=== PATIENT | female | born 1990 | race Caucasian/White ===

== ENCOUNTER 2017-06-24 15:46 | Observation (INO) ==
[2017-06-24 16:21] LABS: Basophils # 0.1 K/mcL (0.0-0.2); Basophils % 0.5 %; Eosinophils # 0.1 K/mcL (0.0-0.6); Eosinophils % 0.5 %; Hematocrit 42.1 % (35.3-44.9); Hemoglobin 14.2 g/dL (11.5-15.4); Immature Granulocytes % 0.5 % (0-4); Lymphocytes % 15.3 %; Mean Corpuscular HGB Conc 33.7 g/dL (31.6-35.5); Mean Corpuscular Volume 88.8 fL (83.0-100.0); Mean Platelet Volume 9.5 fL (9.4-12.4); Monocytes # 0.6 K/mcL (0.0-1.3); Monocytes % 4.9 %; Platelet Count 304 K/mcL (140-400); Red Blood Count 4.74 M/mcL (3.82-4.97); Red Cell Distribution Width 12.3 % (11.5-14.5); Segmented Neutrophils % 78.3 %
[2017-06-24] MEDS ORDERED: Ondansetron 4 MG/2 ML VIAL IVP ONE (16:26)
[2017-06-24] MEDS ORDERED: *HR* HYDROmorphone (PF) 1 MG/ML SYRINGE IVP ONE ×2 (16:27→17:33)
--- NOTE | 2017-06-24 16:29 | Emergency Department Note ---
Disposition Clinical Impression: Acute appendicitis Qualifiers: Acute appendicitis type: unspecified acute appendicitis type Qualified Code(s) : K35.80 - Unspecified acute appendicitis Disposition: Admitted As Inpatient Condition: Fair Referrals: Christina Jackson EMBRYOLOGY PROFESSOR [Primary Care Provider] - Forms: Work/School Release, ED Satisfaction Letter Abdominal Pain HPI - General Chief Complaint: ED Abdominal Pain Stated Complaint: Abdominal pain- RLQ Time Seen by Provider: 06/24/17 16:14 Source: patient, family Mode of arrival: ambulatory Limitations: no limitations Nursing Notes Reviewed: Yes Vital Signs Reviewed: Yes - History of Present Illness HPI Narrative: 27-year-old otherwise healthy female transferred evaluation of right lower quadrant abdominal pain. Symptom onset approximately 24 hours ago. States it is sharp in nature and was nonmigratory. Patient notes the pain is directly in the right lower quadrant without radiation. Patient does have a history of kidney stones however this pain is different. Because of the pain is sharp and worse with movement and walking. Patient reports some nausea with emesis. No diarrhea or constipation. No dysuria or hematuria. Patient states she is currently on her menses which is regular with her last menstrual period approximately 28 days ago. Patient denies any fevers chest pain or shortness of breath. Patient does not take any pain medication prior to arrival. Patient 's been nothing by mouth since approximately noon with a diversion of appetite. Pain Scale: 9 - Related Data Previous Rx's Medication Instructions Recorded OxyCODONE/APAP 5/325 [Percocet 1 each PO Q6HR PRN #12 tablet 09/29/16 5/325 MG] Tamsulosin [Flomax] 0.4 mg PO DAILY #15 capsule 09/29/16 Allergies Allergy/AdvReac Type Severity Reaction Status Date / Time No Known Allergies Allergy Verified 09/29/16 06:06 All systems ED: reviewed and negative except as stated. Constitutional: Reports: as per HPI. Denies: fever Eyes: Reports: as per HPI ENT ED: Reports: as per HPI Cardiovascular: Reports: as per HPI Respiratory: Reports: as per HPI. Denies: cough, dyspnea Gastrointestinal: Reports: as per HPI, abdominal pain, nausea. Denies: vomiting , diarrhea, constipation Genitourinary: Reports: as per HPI Musculoskeletal: Reports: as per HPI Integumentary: Reports: as per HPI Neurological: Reports: as per HPI Psychiatric: Reports: as per HPI Endocrine: Reports: as per HPI Hematological/Lymphatic: Reports: as per HPI Abdominal Pain PMH - Past Medical History Medical history: Reports: no medical history Female Surgical History: Reports: , other Psychiatric history: Reports: depression - Social History Smoking status: Never smoker Alcohol use: Reports: none Drug use: Reports: none Physical Exam - General Limitations: no limitations General appearance: alert, in no apparent distress - Head Head exam: atraumatic, normocephalic, normal inspection - Eye Eye exam: Present: normal appearance, EOMI - ENT ENT exam: normal exam, mucous membranes moist - Neck Neck exam: Present: normal inspection - Chest Chest inspection: Present: normal inspection, symmetric chest wall rise - Respiratory Respiratory exam: Present: normal lung sounds bilaterally. Absent: respiratory distress - Cardiovascular Cardiovascular exam: Present: regular rate - Abdominal Exam Abdominal exam: Present: soft, tenderness (Mild to moderate right lower quadrant tenderness). Absent: distention, guarding, rebound - Extremities Exam Extremities exam: Present: normal inspection. Absent: pedal edema - Back Exam Back exam: Present: normal inspection - Neurological Exam Neurological exam: Present: alert, oriented X3 Course Course Narrative: Patient seen and examined. Patient appears in moderate discomfort. Patient basically lab work, symptomatically with IV fluids and antiemetics. Patient also get CT the abdomen pelvis concerns for appendicitis. Patient's been nothing by mouth since noon. Patient's abdominal exam is nonsurgical. - Reevaluation(s) Reevaluation #1: Patient noted that her pain was starting to return. Patient's updated on plan of care. Time: 17:43 - Consultations Consultation #1: Spoke with Dr. Tijerina who will see the patient. Time: 17:32 Vital Signs Temperature 97.6 F 06/24/17 15:47 Pulse Rate 104 06/24/17 15:47 Respiratory Rate 16 06/24/17 15:47 Blood Pressure 109/84 06/24/17 15:47 O2 Sat by Pulse Oximetry 99 06/24/17 15:47 Temperature 97.6 F 06/24/17 15:47 Pulse Rate 104 06/24/17 15:47 Respiratory Rate 16 06/24/17 15:47 Blood Pressure 109/84 06/24/17 15:47 O2 Sat by Pulse Oximetry 99 06/24/17 15:47 Oxygen Delivery Oxygen Delivery Room Air Abdominal Pain - MDM Narrative Medical decision making narrative: 27-year-old female comes for evaluation of right lower quadrant pain. Patient' s history was consistent with an appendicitis. Patient had mild leukocytosis and the labs. Patient's vitals are stable. Patient's abdomen was non- peritoneal. Patient had IV fluids as well as antiemetics and pain control. Patient's CT of the abdomen pelvis shows acute uncomplicated appendicitis. This was confirmed by the radiologist who called to give the report. - Lab Data Lab results reviewed: Yes I reviewed the patient's lab results. Result diagrams: 06/24/17 16:13 06/24/17 16:13 Lab Results 06/24/17 06/24/17 06/24/17 Range/Units 16:13 16:13 16:27 WBC 12.8 H (4.3-11.1) K/mcL RBC 4.74 (3.82-4.97) M/mcL Hgb 14.2 (11.5-15.4) g/dL Hct 42.1 (35.3-44.9) % MCV 88.8 (83.0-100.0) fL MCH 30.0 (28.0-33.3) pg MCHC 33.7 (31.6-35.5) g/dL RDW 12.3 (11.5-14.5) % Plt Count 304 (140-400) K/mcL MPV 9.5 (9.4-12.4) fL Immature Gran % 0.5 (0-4) % Seg Neutrophils % 78.3 % Lymphocytes % 15.3 % Monocytes % 4.9 % Eosinophils % 0.5 % Basophils % 0.5 % Neutrophils # 10.0 H (1.6-8.9) K/mcL Lymphocytes # 2.0 (0.6-4.6) K/mcL Monocytes # 0.6 (0.0-1.3) K/mcL Eosinophils # 0.1 (0.0-0.6) K/mcL Basophils # 0.1 (0.0-0.2) K/mcL Sodium 138 (136-145) mEq/L Potassium 3.5 (3.5-4.5) mEq/L Chloride 106 (98-109) mEq/L Carbon Dioxide 23 (19-29) mEq/L BUN 7 (7-20) mg/dL Creatinine 0.74 (0.57-1.11) mg/dL Est GFR ( Amer) > 60 (> 60) Est GFR (Non-Af Amer) > 60 (> 60) BUN/Creatinine Ratio 9 (6-26) Glucose 79 (70-99) mg/dL Calculated Osmolality 283 (280-300) Calcium 9.4 (8.6-10.8) mg/dL Total Bilirubin 0.7 (0.2-1.2) mg/dL Direct Bilirubin 0.3 (0.0-0.5) mg/dL Indirect Bilirubin 0.4 (0.0-1.2) mg/dL AST 17 (5-34) Units/L ALT 21 (0-55) Units/L Alkaline Phosphatase 124 (38-126) Units/L Serum Total Protein 7.5 (6.0-8.3) g/dL Albumin 3.8 (3.5-5.0) g/dL Globulin 3.7 H (2.4-3.5) g/dL Albumin/Globulin Ratio 1.0 L (1.1-2.2) Lipase < 10 (8-78) Units/L Urine Color (Yellow) Urine Clarity (Clear) Urine pH (5.0-8.0) pH Units Ur Specific Dixon (1.010-1.025) Urine Protein (Neg-Trace) mg/dL Urine Glucose (UA) (Normal) mg/dL Urine Ketones (Negative) mg/dL Urine Blood (Negative) Urine Nitrite (Negative) Urine Bilirubin (Negative) Urine Urobilinogen (Normal) mg/dL Ur Leukocyte Esterase (Negative) Urine Microscopic RBC (0-3) per hpf Urine Microscopic WBC (0-3) per hpf Ur Squamous Epith Cells (None-Few) per lpf Urine Bacteria (None-Few) per hpf Hyaline Casts (None-Few) per lpf Ur Culture Indicated? (NO) Urine Test Negative (Negative) 06/24/17 Range/Units 16:27 WBC (4.3-11.1) K/mcL RBC (3.82-4.97) M/mcL Hgb (11.5-15.4) g/dL Hct (35.3-44.9) % MCV (83.0-100.0) fL MCH (28.0-33.3) pg MCHC (31.6-35.5) g/dL RDW (11.5-14.5) % Plt Count (140-400) K/mcL MPV (9.4-12.4) fL Immature Gran % (0-4) % Seg Neutrophils % % Lymphocytes % % Monocytes % % Eosinophils % % Basophils % % Neutrophils # (1.6-8.9) K/mcL Lymphocytes # (0.6-4.6) K/mcL Monocytes # (0.0-1.3) K/mcL Eosinophils # (0.0-0.6) K/mcL Basophils # (0.0-0.2) K/mcL Sodium (136-145) mEq/L Potassium (3.5-4.5) mEq/L Chloride (98-109) mEq/L Carbon Dioxide (19-29) mEq/L BUN (7-20) mg/dL Creatinine (0.57-1.11) mg/dL Est GFR ( Amer) (> 60) Est GFR (Non-Af Amer) (> 60) BUN/Creatinine Ratio (6-26) Glucose (70-99) mg/dL Calculated Osmolality (280-300) Calcium (8.6-10.8) mg/dL Total Bilirubin (0.2-1.2) mg/dL Direct Bilirubin (0.0-0.5) mg/dL Indirect Bilirubin (0.0-1.2) mg/dL AST (5-34) Units/L ALT (0-55) Units/L Alkaline Phosphatase (38-126) Units/L Serum Total Protein (6.0-8.3) g/dL Albumin (3.5-5.0) g/dL Globulin (2.4-3.5) g/dL Albumin/Globulin Ratio (1.1-2.2) Lipase (8-78) Units/L Urine Color Yellow (Yellow) Urine Clarity Clear (Clear) Urine pH 6.5 (5.0-8.0) pH Units Ur Specific Dixon 1.009 L (1.010-1.025) Urine Protein Negative (Neg-Trace) mg/dL Urine Glucose (UA) Normal (Normal) mg/dL Urine Ketones Negative (Negative) mg/dL Urine Blood Moderate H (Negative) Urine Nitrite Negative (Negative) Urine Bilirubin Negative (Negative) Urine Urobilinogen Normal (Normal) mg/dL Ur Leukocyte Esterase Trace H (Negative) Urine Microscopic RBC 0-3 (0-3) per hpf Urine Microscopic WBC 0-3 (0-3) per hpf Ur Squamous Epith Cells Few (None-Few) per lpf Urine Bacteria Few (None-Few) per hpf Hyaline Casts None Seen (None-Few) per lpf Ur Culture Indicated? YES A (NO) Urine Test (Negative) - Radiology Data Radiology results reviewed: Yes I reviewed the patient's radiology results. Marcela - Marcela Situation: Demographics Background: Presenting Complaint Assessment: Vital Signs, Patient/Family Expectation Recommendation: Barrier(s) to disposition, Recommendation based on pending studies, treatments, or consults Marcela Report Given to: Dr. Breezy Medrano Repor Time: 17:34
[2017-06-24 16:35] LABS: Alanine Aminotransferase 21 Units/L (0-55); Albumin 3.8 g/dL (3.5-5.0); Alkaline Phosphatase 124 Units/L (38-126); Aspartate Amino Transferase 17 Units/L (5-34); BUN/Creatinine Ratio 9 (6-26); Bilirubin,Direct 0.3 mg/dL (0.0-0.5); Bilirubin,Indirect 0.4 mg/dL (0.0-1.2); Bilirubin,Total 0.7 mg/dL (0.2-1.2); Blood Urea Nitrogen 7 mg/dL (7-20); Calcium 9.4 mg/dL (8.6-10.8); Carbon Dioxide 23 mEq/L (19-29); Chloride 106 mEq/L (98-109); Globulin 3.7 g/dL (2.4-3.5); Glucose 79 mg/dL (70-99); Osmolality,Calculated 283 (280-300); Potassium 3.5 mEq/L (3.5-4.5); Sodium 138 mEq/L (136-145); Total Protein 7.5 g/dL (6.0-8.3); eGFR For African Americans > 60 (> 60); eGFR For Non-African Americans > 60 (> 60)
[2017-06-24 16:39] LABS: Lipase < 10 Units/L (8-78)
[2017-06-24 16:45] LABS: Bilirubin,Urine Negative (Negative); Blood,Urine Moderate (Negative); Color,Urine Yellow (Yellow); Glucose,Urine (UA) Normal (Normal); Ketones,Urine Negative (Negative); Leukocyte Esterase,Urine Trace (Negative); Nitrite,Urine Negative (Negative); PH,Urine 6.5 pH Units (5.0-8.0); Protein,Urine Negative (Neg-Trace); Specific Gravity,Urine 1.009 (1.010-1.025); Urobilinogen,Urine Normal (Normal)
[2017-06-24 16:51] LABS: Clarity,Urine Clear (Clear)
[2017-06-24 17:01] LABS: Bacteria,Urine Few per hpf (None-Few); Hyaline Casts,Urine None Seen per lpf (None-Few); RBC,Urine 0-3 per hpf (0-3); Squamous Epithelial Cell,Urine Few per lpf (None-Few); WBC,Urine 0-3 per hpf (0-3)
--- NOTE | 2017-06-24 17:31 | Emergency Department Note ---
START Narrative - START START: I examined this patient and my medical decision-making was reviewed with the Resident Physician. I agree with the documented findings, disposition and treatment plan as described except to the extent set forth below. +appendicitis on CT will consult Gen Surg, Dr Tijerina vss pt updated
[2017-06-24] MEDS ORDERED: cefOXitin 2,000 MG in D5% in Water (Mini-Bag+) 100 ML IVPB ONE (17:33)
--- NOTE | 2017-06-24 18:01 | General Surg History&Physical ---
Date of Encounter: 06/24/17 Time of Encounter: 17:59 Assessment and Plan (1) Acute appendicitis Current Visit: Yes Status: Acute The assessment and plan as outlined above was discussed with the patient and/or family members who expressed understanding and agreement. All questions were answered. I explained to the patient that I personally reviewed the CT scan images and agree that she does have evidence of acute appendicitis. I think it would be appropriate to proceed with a laparoscopic appendectomy and start IV antibiotics. Risks and benefits discussed with the patient and she agrees to the above plan. Qualifiers: Acute appendicitis type: with localized peritonitis Qualified Code(s): K35.3 - Acute appendicitis with localized peritonitis History of Present Illness Chief complaint: Right lower abdominal pain HPI: Ms. Vick is a 27 year old female with a significant past medical history who presents to the emergency room after a 24-hour history of right lower quadrant abdominal pain. Pain started at 3 PM yesterday and was a constant right lower quadrant sharp pain. She denies any nausea or vomiting but because of the worsening pain symptoms she presented to the emergency room today after going to work for further evaluation. She denies any diarrhea or constipation or rectal bleeding. Past Med Surg Social Fam HX - Past Medical History Medical history: no medical history Psychiatric history: depression - Past Surgical History Surgical History: , other (foot surgery) - Social History Smoking Status: Never smoker Smokeless Tobacco Status: No Alcohol use: none Drug use: none Medications and Allergies Sertraline [Zoloft] 50 mg PO HS 06/24/17 [History] 3 Allergy/AdvReac Type Severity Reaction Status Date / Time No Known Allergies Allergy Verified 09/29/16 06:06 Review of Systems All systems PM: reviewed and no additional remarkable complaints except as stated All systems PM: A 10-system review of systems was performed and is negative for pertinent findings except as documented above in the HPI. General Surgery Exam Initial Vital Signs Temp Pulse Resp BP Pulse Ox 97.6 F 104 16 109/84 99 06/24/17 15:47 06/24/17 15:47 06/24/17 15:47 06/24/17 15:47 06/24/17 15:47 - General physical appearance well developed, well nourished, other (Mild to moderate distress) - Eyes PERRL, normal ocular movement - Respiratory normal expansion, normal respiratory effort, clear to auscultation - Cardiovascular Cardiovascular exam: Present: RRR, no murmurs/rubs/gallops - Abdomen Abdomen general surgery: Present: bowel sounds present, soft (Obese), tender ( RLQ. ) - Neurologic Present: CN 2-12 grossly intact - Musculoskeletal Present: other (No clubbing, cyanosis, or edema) Results - Labs 06/24/17 16:13 06/24/17 16:13 Abnormal lab results WBC 12.8 K/mcL (4.3-11.1) H 06/24/17 16:13 Neutrophils # 10.0 K/mcL (1.6-8.9) H 06/24/17 16:13 Globulin 3.7 g/dL (2.4-3.5) H 06/24/17 16:13 Albumin/Globulin Ratio 1.0 (1.1-2.2) L 06/24/17 16:13 Ur Specific [place] 1.009 (1.010-1.025) L 06/24/17 16:27 Urine Blood Moderate (Negative) H 06/24/17 16:27 Ur Leukocyte Esterase Trace (Negative) H 06/24/17 16:27 Ur Culture Indicated? YES (NO) A 06/24/17 16:27 All other labs normal. - Imaging CT scan - abdomen: report reviewed, image reviewed (Evidence of inflammation and fat stranding around the appendix consistent with acute appendicitis)
--- NOTE | 2017-06-24 18:26 | Anesthesia Evaluation PreOp ---
Date of Encounter: 06/24/17 Time of Encounter: 18:30 - Past History Planned Operation: lap appy Cardiac History: Denies any Significant Hx Pulmonary History: Denies Any Significant HX LINEWORKER History: Denies Any Significant HX Other Medical History: Denies Any Significant HX Anesthesia History: Past Anesthesia, Problems (PONV) Test: Negative Alcohol Use: none Drug use: none Medications and Allergies Sertraline [Zoloft] 50 mg PO HS 06/24/17 [History] 3 Allergy/AdvReac Type Severity Reaction Status Date / Time No Known Allergies Allergy Verified 09/29/16 06:06 - Meds/Allergy Pre-op Review Medications Reviewed: Yes Allergies Reviewed: Yes Beta Blockers on Current Med List: No Anesthesia Results - Labs 06/24/17 16:13 06/24/17 16:13 Anesthesia Exam Selected Entries 06/24/17 15:47 06/24/17 18:18 Temperature 97.6 F Pulse Rate 104 Respiratory Rate 18 Blood Pressure 101/75 O2 Sat by Pulse Oximetry 99 Weight: 104 kg NPO (# of Hours): 1200 - HEENT Pupil (Motor): Pupils equal Mallampati: II Teeth: Normal Oral Opening: Greater than 3 - Cardiac Rhythm: Regular Murmur: None - Pulmonary Breath Sounds: bilateral Clear Respiratory Effort: Symmetrical Anesthesia Assess/Plan ASA Score: 2, E Modified [place] Scale for Level of Consciousness: Cooperative, oriented, and tranquil Anesthetic Plan: General Monitoring Plan: Standard Monitors Recovery Plan: PACU
[2017-06-24] MEDS ORDERED: Scopolamine Patch 1.5 MG PATCH.TD72 TD ONE (18:27)
[2017-06-24] MEDS ORDERED: Scopolamine Patch 1.5 MG PATCH.TD72 ONE (18:32)
[2017-06-24] MEDS ORDERED: Dexamethasone 4 MG/ML VIAL ONE (19:38)
[2017-06-24] MEDS ORDERED: Ondansetron 4 MG/2 ML VIAL ONE (19:38)
[2017-06-24] MEDS ORDERED: *HR* Rocuronium Bromide 50 MG/5 ML VIAL ONE (19:38)
[2017-06-24] MEDS ORDERED: *HR* FentaNYL (PF) 100 MCG/2 ML VIAL ONE (19:38)
[2017-06-24] MEDS ORDERED: Lidocaine -MPF 4% 5 ML AMPUL ONE (19:38)
[2017-06-24] MEDS ORDERED: *HR* Midazolam HCl 2 MG/2 ML VIAL ONE ×2 (19:38)
[2017-06-24] MEDS ORDERED: *HR* Propofol 200 MG/20 ML VIAL IVP ONE ×2 (19:38)
[2017-06-24] MEDS ORDERED: Lidocaine -MPF 2% 2 ML VIAL ONE (19:38)
[2017-06-24] MEDS ORDERED: Metoclopramide 10 MG/2 ML VIAL ONE (19:38)
--- NOTE | 2017-06-24 19:56 | Operative Note ---
Date of procedure: 06/24/17 Pre-op diagnosis: Acute appendicitis Post-op diagnosis: same Procedure: Laparoscopic appendectomy Anesthesia: GETA Surgeon: Ricco Tijerina Estimated blood loss (cc): 2 Condition: stable Disposition: PACU Procedure in Detail: Date of surgery: 06/24/17 After properly identifying the patient, the patient was brought to the operating room and placed in the supine position. After proper IV sedation was achieved followed by general endotracheal intubation, the patient's abdomen was prepped and draped in a normal sterile fashion. A timeout was performed noting the patient's name and type of procedure to be performed. A subumbilical incision with an 11 blade scalpel was made down to the level of the abdominal hernia defect. Dissection between the dermis of the umbilicus and the hernia sac was performed with sharp dissection. Once the sac was freed was reduced within the abdomen and a 12 mm port was placed in the hernia defect. A laparoscopic camera was placed to the port which showed no injury to the intra- abdominal organs upon entry and the abdomen was insufflated with carbon dioxide. A suprapubic 5 mm port and a left lower quadrant 5 mm port were placed under direct camera visualization. The patient was placed in a Trendelenburg position with this left side tilted downwards. The right lower quadrant was examined and the appendix was noted and was dilated with mild fibrinous exudate consistent with acute appendicitis. The appendix was retracted superiorly and the [place] dissector was used to dissect between the base of the appendix and the mesentery. A laparoscopic ARACELIS stapler was used to transect across both the base of the appendix and the meso-appendix and the appendix was removed from the abdomen via an Endobag. Reinspection of the right lower quadrant showed maintenance of hemostasis and the right lower quadrant and pelvis were irrigated with normal saline solution. Repeat reinspection demonstrated continued maintenance and the decision was made to complete the surgical procedure by removing all ports after the abdomen was desufflated. The subumbilical incision was closed by reapproximating the fascia in a figure- of-eight fashion with an 0 Vicryl suture. The subcutaneous cutaneous tissue was reapproximated with interrupted 3-0 Vicryl sutures and the epidermal and dermal layers for all incisions were reapproximated with a 4-0 Monocryl suture. Needle, sponge, and instrument counts were correct 2 and the incisions were covered with Dermabond. The patient was aroused from IV sedation , extubated in the operating room without complication, and transported to the recovery room in stable condition.
[2017-06-24] MEDS ORDERED: *HR* Promethazine 25 MG/ML VIAL IVP PRN (20:09)
[2017-06-24] MEDS ORDERED: *HR* HYDROmorphone (PF) 1 MG/ML SYRINGE IVP PRN ×2 (20:09→20:37)
[2017-06-24] MEDS ORDERED: *HR* OxyCODONE/APAP 10/325 TABLET PO PRN (20:37)
[2017-06-24] MEDS ORDERED: Ondansetron 4 MG/2 ML VIAL IVP PRN (20:37)
[2017-06-24] MEDS: 0.9 % Sodium Chloride 1,000 ML IVC SCH (20:48)
--- NOTE | 2017-06-24 21:06 | Anesthesia Evaluation Post Op ---
Date of Encounter: 06/24/17 Time of Encounter: 20:30 - Vital Signs Vital Signs: Last Vital Signs Temp 98.1 F 06/24/17 20:40 Pulse 95 06/24/17 20:40 Resp 16 06/24/17 20:40 BP 105/68 06/24/17 20:40 Pulse Ox 100 06/24/17 20:40 - Lungs Lungs: Clear Ascult./Percussion - Airway Airway: Non-obstructed - Cardiovascular Regular Rate - Mental Status Mental Status: Alert & Oriented, Answers Appropriately - Pain Pain Scale: 2 - Nausea Vomiting Nausea Vomiting: Not Present - Hydration Hydration: Ice chips - Discharge PostOp Status: Transfer Patient to floor
[2017-06-25] MEDS: cefOXitin 1,000 MG in D5% in Water (Mini-Bag+) 100 ML IVPB SCH ×2 (00:08→08:37)
[2017-06-25] MEDS: Ketorolac 30 MG/ML VIAL IVP SCH ×2 (00:13→05:56)
[2017-06-25 05:56] LABS: Basophils % 0.1 %; Hematocrit 37.6 % (35.3-44.9); Hemoglobin 12.8 g/dL (11.5-15.4); Immature Granulocytes % 0.3 % (0-4); Lymphocytes % 8.7 %; Mean Corpuscular Hemoglobin 30.3 pg (28.0-33.3); Mean Corpuscular Volume 89.1 fL (83.0-100.0); Mean Platelet Volume 9.3 fL (9.4-12.4); Monocytes # 0.2 K/mcL (0.0-1.3); Monocytes % 1.7 %; Neutrophils # 9.8 K/mcL (1.6-8.9); Platelet Count 347 K/mcL (140-400); Red Blood Count 4.22 M/mcL (3.82-4.97); Red Cell Distribution Width 12.4 % (11.5-14.5); Segmented Neutrophils % 89.2 %
[2017-06-25] MEDS ORDERED: *HR* Heparin 5,000 UNIT/ML VIAL SQ SCH (06:00)
[2017-06-25 08:13] VITALS: BP 105/68
[2017-06-25] MEDS ORDERED: Pantoprazole 40 MG VIAL IVP SCH (09:00)
[2017-06-25] MEDS: 0.9 % Sodium Chloride 1,000 ML IVC SCH (10:27)
--- NOTE | 2017-06-25 10:56 | Discharge Summary ---
Date of Encounter: 06/25/17 Time of Encounter: 10:45 - Discharge Diagnosis (1) Acute appendicitis Priority: Primary Status: Resolved Qualifiers: Acute appendicitis type: with localized peritonitis Qualified Code(s): K35.3 - Acute appendicitis with localized peritonitis - Discharge Medications Prescriptions: OxyCODONE/APAP 10/325 [Percocet 10/325 MG] 1 each PO Q6HR PRN #30 tab PRN Reason: Moderate Pain Ibuprofen [Motrin] 600 mg PO Q8HR #50 tab Amoxicillin/Clavulanate [Augmentin] 875 mg PO BIDWM #6 tablet Docusate [Colace] 100 mg PO BID #30 capsule Home Medications: Sertraline [Zoloft] 50 mg PO HS 06/24/17 [History] Amoxicillin/Clavulanate [Augmentin] 875 mg PO BIDWM #6 tablet 06/25/17 [Rx] Docusate [Colace] 100 mg PO BID #30 capsule 06/25/17 [Rx] Ibuprofen [Motrin] 600 mg PO Q8HR #50 tab 06/25/17 [Rx] OxyCODONE/APAP 10/325 [Percocet 10/325 MG] 1 each PO Q6HR PRN #30 tab 06/25/17 [ Rx] Allergies/Adverse Reactions: 3 Allergy/AdvReac Type Severity Reaction Status Date / Time No Known Allergies Allergy Verified 09/29/16 06:06 General Surgery Exam Initial Vital Signs Temp Pulse Resp BP Pulse Ox 97.6 F 104 16 109/84 99 06/24/17 15:47 06/24/17 15:47 06/24/17 15:47 06/24/17 15:47 06/24/17 15:47 - General physical appearance well developed, well nourished, no distress - Eyes normal ocular movement - ENT normal mucosa, atraumatic, normocephalic - Neck trachea midline - Respiratory normal respiratory effort, clear to auscultation - Cardiovascular Cardiovascular exam: Present: RRR - Abdomen Abdomen general surgery: Present: bowel sounds present, tender (Minimal, expected postoperative tenderness) - Incision Incision: Present: clean and dry, intact - Integumentary Integumentary general surgery: Present: warm and dry - Neurologic Present: CN 2-12 grossly intact - Musculoskeletal Present: normal gait, normal posture - Psychiatric Psychiatric general surgery: Present: appropriate, oriented to person, oriented to place, oriented to time, speech is normal, memory intact Date of admission: 06/24/17 17:52 Primary care physician: Christina Jackson CNP Discharging clinician: Ricco Tijerina (Jeffry Jackson) Anticipated date of discharge: 06/25/17 - Patient Status Disposition: Home, Self-Care Condition: Good Functional capacity at discharge: independent ambulation Overall status at discharge: patient is progressing back to baseline - Discharge Instructions Follow Up With: Christina Jackson CNP [Primary Care Provider] - Marlene Jackson CNP [Advanced Practice Nurse] - 07/12/17 8:30 am (surgery follow-up) Additional Instructions: #1 may shower 06/25/17, no tub bath or swimming for 2 weeks #2 wash incisions with soap and water and pat dry daily #3 no lifting, pushing, pulling more than 15 pounds for the next 2 weeks #4 no driving until off narcotics for 24 hours and able to safely react in the car #5 may climb stairs - Diet and Activity Activity: other (See additional instructions above) Diet: advance to your usual diet - Hospital Course Hospital course: Ms. Vick is a 27 year old female presented to the hospital with complaints of abdominal pain. She was found to have acute appendicitis. She was started on IV antibiotics and taken to the operating room with Dr. Tijerina for laparoscopic appendectomy. On postoperative day #1, she states that her pain is much better. She now has incisional discomfort which is controlled with when necessary pain medication. She is tolerating a diet without nausea or vomiting. She is passing flatus. Her vital signs are stable and she is afebrile. She is voiding and ambulating without difficulty. We will begin discharge planning and plan for outpatient follow-up in the next 2 weeks. - Time Spent with Patient Total time spent providing and/or coordinating discharge services: Less than 30 minutes Labs on day of discharge: Labs from last 24 hours 06/25/17 05:36 WBC 11.0 RBC 4.22 Hgb 12.8 Hct 37.6 MCV 89.1 MCH 30.3 MCHC 34.0 RDW 12.4 Plt Count 347 MPV 9.3 L Immature Gran % 0.3 Seg Neutrophils % 89.2 Lymphocytes % 8.7 Monocytes % 1.7 Eosinophils % 0.0 Basophils % 0.1 Neutrophils # 9.8 H Lymphocytes # 1.0 Monocytes # 0.2 Eosinophils # 0.0 Basophils # 0.0 - Attending Attestation For this encounter, I have reviewed the DOOR CORE ASSEMBLER or PA documentation, treatment plan, and medical decision making; and I have had face to face time with this patient.
== END 2017-06-25 11:58 | disposition home or self-care (01) ==
LOC: EMEROO 15:46 → 3ANU 15:46
PROVIDERS: ADMIT Surgery; ATTEND Surgery

== ENCOUNTER 2018-06-17 10:53 | Observation (INO) ==
[2018-06-17] MEDS ORDERED: cefTRIAXone 2,000 MG in 0.9 % Sodium Chloride Mini Bag 100 ML IVPB ONE (11:16)
[2018-06-17] MEDS ORDERED: Dexamethasone 4 MG/ML VIAL IVP ONE (11:16)
[2018-06-17] MEDS ORDERED: *HR* FentaNYL (PF) 100 MCG/2 ML VIAL IVP ONE (11:17)
[2018-06-17] MEDS ORDERED: Acyclovir 500 MG in D5% in Water 250 ML IVPB STA (11:17)
--- NOTE | 2018-06-17 11:26 | Emergency Department Note ---
Disposition Clinical Impression: Nuchal rigidity Fever Qualifiers: Encounter type: initial encounter Cephalgia Qualifiers: Headache type: unspecified Headache chronicity pattern: acute headache Disposition: Admitted As Inpatient Condition: Fair Time of Disposition: 15:50 General Adult HPI - General Stated complaint: Possible Meningitis Time Seen by Provider: 06/17/18 10:58 Source: patient Limitations: no limitations Nursing Notes Reviewed: Yes Vital Signs Reviewed: Yes - History of Present Illness HPI Narrative: 28yo female presents from medicine physician's office for evaluation of meningitis suspected by the family medicine physician. Patient had a headache that started yesterday while at work. At home, she measured a temperature MAXIMUM TEMPERATURE 103. With alternating Tylenol and ibuprofen, her temperature improved to 100. She has chills, photophobia. Tightness down the middle of her spine from her neck to her sacrum. Some tingling in her bilateral fingertips. Generalized weakness. Mild nausea. daily medications: none Habits: no illicit, no EtOH, no tobacco use ROS: Pos: as above Neg: chest pain, palpitations, dyspnea, diaphoresis Pain Scale: 10 - Related Data Home Medications Medication Instructions Recorded Confirmed Eszopiclone [Lunesta] 1 mg PO HS 06/17/18 06/17/18 Sertraline [Zoloft] 150 mg PO DAILY 06/17/18 06/17/18 hydrOXYzine HCl [Hydroxyzine HCl] 12.5 - 25 mg PO HS PRN 06/17/18 06/17/18 Allergies Allergy/AdvReac Type Severity Reaction Status Date / Time No Known Allergies Allergy Verified 10/25/17 18:01 Past Medical History - Past Medical History Medical history: Reports: kidney stones Surgical history: Reports: , other (foot surgery) Psychiatric history: Reports: anxiety, depression - Social History Smoking Status: Never smoker Smokeless Tobacco Status: No Alcohol use: Reports: none Drug use: Reports: none Physical Exam Vital Signs Reviewed General: Patient is alert, oriented, and in acute distress from her back pain and headache. Head: atraumatic, normocephalic Eye: normal appearance, PERRL, EOMI, no scleral icterus, no conjunctival injection ENT: mucous membranes moist, normal external ear exam Neck: normal inspection, trachea midline, full ROM Chest: normal inspection, symmetric chest rise Respiratory: Good respiratory effort. Bilateral breath sounds are clear without wheezing, crackles, or rhonchi. Cardiovascular: Regular rate and rhythm. No clicks, rubs, gallops, or murmors. Normal heart sounds. Abdomen: Bowel sounds present normoactive x-4 quadrants. Abdomen is soft, nondistended, and nontender. No guarding or rebound. No organomegaly noted. Musculoskeletal: Spontaneously moving all extremities. Skin: warm, diaphoretic, intact. Neuro: Alert and oriented x4. Sensation light touch intact and equal bilaterally. Positive Kernig, positive Brudzinski. No focal deficits-strength 5/5 and equal bilaterally; back pain with active strongly movement. No facial asymmetry. No slurring of speech. Psych: Patient's affect is appropriate for situation. - General Limitations: no limitations General appearance: alert, in no apparent distress Course Course Narrative: Patient fits the clinical picture for meningitis. Will CT head and perform emergent lumbar puncture. Febrile to 103 on intake; provide 1g acetaminophen. CT had returned unremarkable per radiology read as well as my evaluation as well as my attendings. Lumbar puncture returned clear CSF. Lab analysis shows clear CSF, normal glucose, normal protein, low RBC, low nucl cells. Serum hematology has mild leukocytosis. Serum chemistries unremarkable. Patient's fever did improve with 1 g of Tylenol however, she remains tearful with bright lights in the slightest of movements. I discussed the above the patient. She is agreeable to admission for continued empiric management until CSF culture returns negative. I discussed the above the admitting hospitalist, Dr. Osuna, who agrees to accept the patient for continued evaluation and management. Patient's ED stay prolonged visit took approximately 2.5 hours to obtain a CT head. Patient's ED stay again prolonged awaiting urine collection. Head CT 06/17/18 11:13 IMPRESSION: No acute intracranial abnormality. Given patient's symptoms, MRI may be considered for further evaluation. D/ / Ortiz Sun MD / Ortiz Sun MD Interpreting Provider: Ortiz Sun MD Chest X-Ray 06/17/18 11:14 IMPRESSION: Normal chest. D/ / 06/17/2018 12:47:13 Hiro Eldridge MD / ryder Interpreting Provider: Hiro Eldridge MD Vital Signs Temperature 103.2 F H 06/17/18 11:11 Pulse Rate 128 06/17/18 11:11 Respiratory Rate 16 06/17/18 11:11 Blood Pressure 127/94 06/17/18 11:11 O2 Sat by Pulse Oximetry 98 06/17/18 11:11 Temperature 98.8 F 06/17/18 17:32 Pulse Rate 83 06/17/18 17:32 Respiratory Rate 15 06/17/18 17:32 Blood Pressure 136/76 06/17/18 17:32 O2 Sat by Pulse Oximetry 94 06/17/18 17:32 Oxygen Delivery Oxygen Delivery Room Air Medical Decision Making - Lab Data Result diagrams: 06/17/18 11:13 06/17/18 11:13 Lab Results 06/17/18 06/17/18 06/17/18 Range/Units 11:13 11:13 11:40 WBC 13.9 H (4.3-11.1) K/mcL RBC 4.91 (3.82-4.97) M/mcL Hgb 14.7 (11.5-15.4) g/dL Hct 43.1 (35.3-44.9) % MCV 87.8 (83.0-100.0) fL MCH 29.9 (28.0-33.3) pg MCHC 34.1 (31.6-35.5) g/dL RDW 13.2 (11.5-14.5) % Plt Count 325 (140-400) K/mcL MPV 9.2 L (9.4-12.4) fL Immature Gran % 0.6 (0-4) % Seg Neutrophils % 93.4 % Lymphocytes % 4.0 % Monocytes % 1.9 % Eosinophils % 0.0 % Basophils % 0.1 % Neutrophils # 13.0 H (1.6-8.9) K/mcL Lymphocytes # 0.6 (0.6-4.6) K/mcL Monocytes # 0.3 (0.0-1.3) K/mcL Eosinophils # 0.0 (0.0-0.6) K/mcL Basophils # 0.0 (0.0-0.2) K/mcL Sodium 136 (136-145) mEq/L Potassium 3.5 (3.5-5.1) mEq/L Chloride 102 (98-107) mEq/L Carbon Dioxide 24 (23-29) mEq/L BUN 7 (6-20) mg/dL Creatinine 0.83 (0.60-1.20) mg/dL Est GFR ( Amer) > 60 (> 60) Est GFR (Non-Af Amer) > 60 (> 60) BUN/Creatinine Ratio 8 (6-26) Glucose 101 (70-105) mg/dL Calculated Osmolality 280 (280-300) Lactic Acid 0.9 (0.5-2.2) mmol/L Calcium 9.5 (8.6-10.3) mg/dL TSH 0.625 (0.340-5.600) mcIU/mL Free T4 1.05 (0.70-2.00) ng/dl Random Cortisol 17.5 mcg/dl CSF Volume mL CSF Appearance (Clear) CSF Color (Colorless) CSF RBC (0.000 - 0.002) M/mcL CSF Tot Nucleated Cells (0-5) TNC/mcL CSF Glucose (40-70) mg/dL CSF Xanth Comm (Not Observe) CSF Total Protein (15-45) mg/dL Lyme Total Antibody (Negative) 06/17/18 06/17/18 Range/Units 11:48 14:05 WBC (4.3-11.1) K/mcL RBC (3.82-4.97) M/mcL Hgb (11.5-15.4) g/dL Hct (35.3-44.9) % MCV (83.0-100.0) fL MCH (28.0-33.3) pg MCHC (31.6-35.5) g/dL RDW (11.5-14.5) % Plt Count (140-400) K/mcL MPV (9.4-12.4) fL Immature Gran % (0-4) % Seg Neutrophils % % Lymphocytes % % Monocytes % % Eosinophils % % Basophils % % Neutrophils # (1.6-8.9) K/mcL Lymphocytes # (0.6-4.6) K/mcL Monocytes # (0.0-1.3) K/mcL Eosinophils # (0.0-0.6) K/mcL Basophils # (0.0-0.2) K/mcL Sodium (136-145) mEq/L Potassium (3.5-5.1) mEq/L Chloride (98-107) mEq/L Carbon Dioxide (23-29) mEq/L BUN (6-20) mg/dL Creatinine (0.60-1.20) mg/dL Est GFR ( Amer) (> 60) Est GFR (Non-Af Amer) (> 60) BUN/Creatinine Ratio (6-26) Glucose (70-105) mg/dL Calculated Osmolality (280-300) Lactic Acid (0.5-2.2) mmol/L Calcium (8.6-10.3) mg/dL TSH (0.340-5.600) mcIU/mL Free T4 (0.70-2.00) ng/dl Random Cortisol mcg/dl CSF Volume 5.0 mL CSF Appearance Clear (Clear) CSF Color Colorless (Colorless) CSF RBC < 0.002 (0.000 - 0.002) M/mcL CSF Tot Nucleated Cells < 3 (0-5) TNC/mcL CSF Glucose 65 (40-70) mg/dL CSF Xanth Comm Not Observed (Not Observe) CSF Total Protein 28 (15-45) mg/dL Lyme Total Antibody Negative (Negative)
--- NOTE | 2018-06-17 11:33 | Emergency Department Note ---
Disposition Clinical Impression: Nuchal rigidity, Cephalgia Fever Qualifiers: Encounter type: initial encounter Disposition: Admitted As Inpatient Condition: Fair Referrals: Christina Jackson, [employer] [Primary Care Provider] - Forms: ED Satisfaction Letter Time of Disposition: 16:10 General Adult HPI - General Chief complaint: ED Headache Stated complaint: Possible Meningitis Time Seen by Provider: 06/17/18 10:58 Source: patient Limitations: no limitations - History of Present Illness Pain Scale: 10 - Related Data Home Medications Medication Instructions Recorded Confirmed Eszopiclone [Lunesta] 1 mg PO HS 06/17/18 06/17/18 RX: hydrOXYzine HCl [Hydroxyzine 12.5 - 25 mg PO HS PRN 06/17/18 06/17/18 HCl] Sertraline [Zoloft] 150 mg PO DAILY 06/17/18 06/17/18 Allergies Allergy/AdvReac Type Severity Reaction Status Date / Time No Known Allergies Allergy Verified 10/25/17 18:01 Past Medical History - Past Medical History Medical history: Reports: kidney stones Surgical history: Reports: , other (foot surgery) Psychiatric history: Reports: anxiety, depression - Social History Smoking Status: Never smoker Smokeless Tobacco Status: No Alcohol use: Reports: none Drug use: Reports: none Physical Exam - General Limitations: no limitations General appearance: alert, in no apparent distress Course Vital Signs Temperature 103.2 F H 06/17/18 11:11 Pulse Rate 128 06/17/18 11:11 Respiratory Rate 16 06/17/18 11:11 Blood Pressure 127/94 06/17/18 11:11 O2 Sat by Pulse Oximetry 98 06/17/18 11:11 Temperature 99.0 F 06/17/18 15:35 Pulse Rate 99 06/17/18 15:35 Respiratory Rate 28 06/17/18 15:35 Blood Pressure 115/67 06/17/18 15:35 O2 Sat by Pulse Oximetry 97 06/17/18 15:35 Oxygen Delivery Oxygen Delivery Room Air Medical Decision Making - Lab Data Result diagrams: 06/17/18 11:13 06/17/18 11:13 Lab Results 06/17/18 06/17/18 06/17/18 Range/Units 11:13 11:13 11:40 WBC 13.9 H (4.3-11.1) K/mcL RBC 4.91 (3.82-4.97) M/mcL Hgb 14.7 (11.5-15.4) g/dL Hct 43.1 (35.3-44.9) % MCV 87.8 (83.0-100.0) fL MCH 29.9 (28.0-33.3) pg MCHC 34.1 (31.6-35.5) g/dL RDW 13.2 (11.5-14.5) % Plt Count 325 (140-400) K/mcL MPV 9.2 L (9.4-12.4) fL Immature Gran % 0.6 (0-4) % Seg Neutrophils % 93.4 % Lymphocytes % 4.0 % Monocytes % 1.9 % Eosinophils % 0.0 % Basophils % 0.1 % Neutrophils # 13.0 H (1.6-8.9) K/mcL Lymphocytes # 0.6 (0.6-4.6) K/mcL Monocytes # 0.3 (0.0-1.3) K/mcL Eosinophils # 0.0 (0.0-0.6) K/mcL Basophils # 0.0 (0.0-0.2) K/mcL Sodium 136 (136-145) mEq/L Potassium 3.5 (3.5-5.1) mEq/L Chloride 102 (98-107) mEq/L Carbon Dioxide 24 (23-29) mEq/L BUN 7 (6-20) mg/dL Creatinine 0.83 (0.60-1.20) mg/dL Est GFR ( Amer) > 60 (> 60) Est GFR (Non-Af Amer) > 60 (> 60) BUN/Creatinine Ratio 8 (6-26) Glucose 101 (70-105) mg/dL Calculated Osmolality 280 (280-300) Lactic Acid 0.9 (0.5-2.2) mmol/L Calcium 9.5 (8.6-10.3) mg/dL CSF Volume mL CSF Appearance (Clear) CSF Color (Colorless) CSF RBC (0.000 - 0.002) M/mcL CSF Tot Nucleated Cells (0-5) TNC/mcL CSF Glucose (40-70) mg/dL CSF Xanth Comm (Not Observe) CSF Total Protein (15-45) mg/dL Lyme Total Antibody (Negative) 06/17/18 06/17/18 Range/Units 11:48 14:05 WBC (4.3-11.1) K/mcL RBC (3.82-4.97) M/mcL Hgb (11.5-15.4) g/dL Hct (35.3-44.9) % MCV (83.0-100.0) fL MCH (28.0-33.3) pg MCHC (31.6-35.5) g/dL RDW (11.5-14.5) % Plt Count (140-400) K/mcL MPV (9.4-12.4) fL Immature Gran % (0-4) % Seg Neutrophils % % Lymphocytes % % Monocytes % % Eosinophils % % Basophils % % Neutrophils # (1.6-8.9) K/mcL Lymphocytes # (0.6-4.6) K/mcL Monocytes # (0.0-1.3) K/mcL Eosinophils # (0.0-0.6) K/mcL Basophils # (0.0-0.2) K/mcL Sodium (136-145) mEq/L Potassium (3.5-5.1) mEq/L Chloride (98-107) mEq/L Carbon Dioxide (23-29) mEq/L BUN (6-20) mg/dL Creatinine (0.60-1.20) mg/dL Est GFR ( Amer) (> 60) Est GFR (Non-Af Amer) (> 60) BUN/Creatinine Ratio (6-26) Glucose (70-105) mg/dL Calculated Osmolality (280-300) Lactic Acid (0.5-2.2) mmol/L Calcium (8.6-10.3) mg/dL CSF Volume 5.0 mL CSF Appearance Clear (Clear) CSF Color Colorless (Colorless) CSF RBC < 0.002 (0.000 - 0.002) M/mcL CSF Tot Nucleated Cells < 3 (0-5) TNC/mcL CSF Glucose 65 (40-70) mg/dL CSF Xanth Comm Not Observed (Not Observe) CSF Total Protein 28 (15-45) mg/dL Lyme Total Antibody Negative (Negative) Critical Care Time Critical Care Time: Yes Total Critical Care Time: 45 Attestation: Critical care time of 45 minutes spent in medical management of possible meningitis and workup for headache and fever and meningismus Attestation Statement - Attestation Attestation: I examined this patient and my medical decision-making was reviewed with the Resident Physician. I agree with the documented findings, disposition and treatment plan as described except to the extent set forth below. 28 yo F here for meningitis type sx of neck pain, stiffness, headache and fever. sx started yesterday at noon. feeling very ill. will check labs, ct head, LP. we have started empiric antibiotics and steroids and acyclovir. anticipate admission. fever control iv fluids
[2018-06-17] MEDS ORDERED: Ondansetron 4 MG/2 ML VIAL IVP STA (11:39)
[2018-06-17 12:02] LABS: Basophils % 0.1 %; Hematocrit 43.1 % (35.3-44.9); Hemoglobin 14.7 g/dL (11.5-15.4); Immature Granulocytes % 0.6 % (0-4); Lymphocytes # 0.6 K/mcL (0.6-4.6); Mean Corpuscular HGB Conc 34.1 g/dL (31.6-35.5); Mean Corpuscular Hemoglobin 29.9 pg (28.0-33.3); Mean Corpuscular Volume 87.8 fL (83.0-100.0); Mean Platelet Volume 9.2 fL (9.4-12.4); Monocytes # 0.3 K/mcL (0.0-1.3); Monocytes % 1.9 %; Platelet Count 325 K/mcL (140-400); Red Blood Count 4.91 M/mcL (3.82-4.97); Red Cell Distribution Width 13.2 % (11.5-14.5); Segmented Neutrophils % 93.4 %
[2018-06-17] MEDS ORDERED: 0.9 % Sodium Chloride 1,000 ML IVC ONE ×2 (12:23→14:10)
[2018-06-17 12:30] LABS: BUN/Creatinine Ratio 8 (6-26); Blood Urea Nitrogen 7 mg/dL (6-20); Calcium 9.5 mg/dL (8.6-10.3); Carbon Dioxide 24 mEq/L (23-29); Chloride 102 mEq/L (98-107); Glucose 101 mg/dL (70-105); Osmolality,Calculated 280 (280-300); Potassium 3.5 mEq/L (3.5-5.1); Sodium 136 mEq/L (136-145); eGFR For Non-African Americans > 60 (> 60)
[2018-06-17] MEDS ORDERED: 0.9 % Sodium Chloride 1,000 ML ONE (14:05)
[2018-06-17 14:44] LABS: Red Blood Cell,CSF < 0.002 M/mcL
[2018-06-17 14:45] LABS: Appearance,CSF Clear (Clear)
[2018-06-17 15:08] LABS: Glucose,CSF 65 mg/dL (40-70); Total Protein,CSF 28 mg/dL (15-45)
[2018-06-17] MEDS ORDERED: Naloxone 0.4 MG/ML INJ IVP PRN (16:49)
--- NOTE | 2018-06-17 16:55 | Internal Med History&Physical ---
Date of Encounter: 06/17/18 Time of Encounter: 16:53 Internal Medicine - H&P: HPI Admitted From: Home Plans for Post Hospital Care: Home History of present illness: Ms. Vick is a 28yo female presents from medicine physician's office for evaluation of meningitis suspected by the family medicine physician. Patient had a headache that started yesterday while at work. At home, she measured a temperature MAXIMUM TEMPERATURE 103. With alternating Tylenol and ibuprofen, her temperature improved to 100. She has chills, photophobia. Tightness down the middle of her spine from her neck to her sacrum. Some tingling in her bilateral fingertips. Generalized weakness. Mild nausea. At the ED, her initial temperature was 103.1, heart rate is 120. Chest x-ray and CT brain no acute changes. Lumbar puncture showed clear CSF, normal glucose and protein, RBC less than 0.003, nucleated cell less than 3. Lyme disease antibody is negative. Patient received 1 dose of IV Rocephin, IV vancomycin and acyclovir. Due to the concerning symptoms, patient will be admitted for observation. Past Med Surg Social Fam HX - Past Medical History Medical history: kidney stones Psychiatric history: anxiety, depression - Past Surgical History Surgical History: , other (foot surgery) Additional surgical history: left foot and knee surgery - Social History Smoking Status: Never smoker Smokeless Tobacco Status: No Alcohol use: none Drug use: none Internal Medicine - H&P: Meds Eszopiclone [Lunesta] 1 mg PO HS 06/17/18 [History] Sertraline [Zoloft] 150 mg PO DAILY 06/17/18 [History] hydrOXYzine HCl [Hydroxyzine HCl] 12.5 - 25 mg PO HS PRN 06/17/18 [History] 3 Allergy/AdvReac Type Severity Reaction Status Date / Time No Known Allergies Allergy Verified 10/25/17 18:01 All Systems PM: A 10-system review of systems was performed and is negative for pertinent findings except as documented above in the HPI. - Constitutional Vitals: Temp Pulse Resp BP Pulse Ox 99.0 F 99 28 115/67 97 06/17/18 15:35 06/17/18 15:35 06/17/18 15:35 06/17/18 15:35 06/17/18 15:35 General appearance: Present: cooperative, A&O X 3, answers questions appropriately Exam: PHYSICAL EXAMINATION: GENERAL APPEARANCE: The patient is alert, oriented and in no acute distress. HEENT: Head is normocephalic. The sinuses are nontender. Pupils are equal and reactive. The nares are patent. Oropharynx clear without lesions. NECK: Supple without lymphadenopathy. HEART: Regular rate and rhythm. LUNGS: No crackles or wheezes are heard. ABDOMEN: Soft, nontender, nondistended with good bowel sounds heard. Inguinal area is normal. EXTREMITIES: Without cyanosis, clubbing or edema. NEUROLOGICAL: Patient in no 3, diffuse muscle weakness with strength 4 out of 5, no sensory deficit, cranial nerve grossly normal, DTR diffusely decreased, positive for Brudzinski and Kernig sign. SKIN: Warm and dry without any rash. Internal Med - H&P Results - Labs CBC & Chem 7: 06/17/18 11:13 06/17/18 11:13 - Assessment and plan (1) Nuchal rigidity Current Visit: Yes Status: Acute Assessment and plan: 28-year-old female previously healthy presented with acute onset of fever and headache. Symptoms were concerning for meningitis. Level, lumbar puncture showed clear CSF, normal glucose and protein, RBC less than 0.003, nucleate cells less than 3/HP. He received 1 dose of vancomycin, Rocephin, and acyclovir at the ED. - Based on the lumbar puncture findings, bacterial meningitis was less likely, however, viral meningitis including HSV is still possible. We will continue IV acyclovir. CSF culture pending. Pending HSV1/HSV 2 antibody. Lyme disease antibody negative. - She also has fever, tachycardia in addition to headache and generalized weakness, no focal neuro deficit, systemic disease including endocrine disease and drug toxicity was also suspected, will to drug use urine drug screen, [facility] this time concerning for anticholinergic overdose. - MR brain, vertigo, thoracic, and lumbar spine ordered. - We will consult ID. - Neurology consult. (2) Fever Current Visit: Yes Status: Acute Assessment and plan: same above. Qualifiers: Encounter type: initial encounter Qualified Code(s): T88.3XXA - Malignant hyperthermia due to anesthesia, initial encounter (3) Headache Current Visit: Yes Status: Acute Assessment and plan: same as above. Qualifiers: Headache type: unspecified Headache chronicity pattern: acute headache Intractability: not intractable Qualified Code(s): R51 - Headache (4) DVT prophylaxis Current Visit: Yes Status: Acute Assessment and plan: Heparin subcutaneous. - Time Spent With Patient Total time spent is greater than 50% in coordination of care (as documented) at patient's floor/unit and/or counseling patient: Greater than 35 minutes
[2018-06-17 18:16] LABS: Thyroid Stimulating Hormone 0.625 mcIU/mL (0.340-5.600)
[2018-06-17] MEDS: Acetaminophen 325 MG TABLET PO PRN (20:17)
[2018-06-17 21:50] LABS: Bilirubin,Urine Negative (Negative); Blood,Urine Moderate (Negative); Clarity,Urine Clear (Clear); Color,Urine Yellow (Yellow); Glucose,Urine (UA) Normal (Normal); Ketones,Urine 15 mg/dL (Negative); Leukocyte Esterase,Urine Negative (Negative); Nitrite,Urine Negative (Negative); PH,Urine 6.5 pH Units (5.0-8.0); Protein,Urine Negative (Neg-Trace); Specific Gravity,Urine 1.016 (1.010-1.025); Urobilinogen,Urine Normal (Normal)
[2018-06-17 21:52] LABS: Bacteria,Urine None Seen per hpf (None-Few); Hyaline Casts,Urine None Seen per lpf (None-Few); Squamous Epithelial Cell,Urine Many per lpf (None-Few); WBC,Urine 0-3 per hpf (0-3)
[2018-06-17 22:01] LABS: Amphetamine Screen,Urine Negative ng/mL (Cutoff=1000); Barbiturate Screen,Urine Negative ng/mL (Cutoff=200); Benzodiazepines Screen,Urine Negative ng/mL (Cutoff=200); Cannabinoid Screen,Urine Negative ng/mL (Cutoff = 50); Cocaine Screen,Urine Negative ng/mL (Cutoff= 300); Opiate Screen,Urine Negative ng/mL (Cutoff=300); Phencyclidine Screen,Urine Negative ng/mL (Cutoff=25)
[2018-06-17 22:04] LABS: RBC,Urine 0-3 per hpf (0-3)
[2018-06-17] MEDS: traMADol 50 MG TABLET PO PRN (22:08)
[2018-06-17] MEDS: *HR* Heparin 5,000 UNIT/ML VIAL SQ SCH (22:09)
[2018-06-17] MEDS: Acyclovir 500 MG in D5% in Water 100 ML IVPB SCH (23:55)
[2018-06-18] MEDS: *HR* Heparin 5,000 UNIT/ML VIAL SQ SCH (05:44)
[2018-06-18 05:46] LABS: Basophils % 0.2 %; Hematocrit 37.5 % (35.3-44.9); Immature Granulocytes % 0.7 % (0-4); Lymphocytes # 0.8 K/mcL (0.6-4.6); Lymphocytes % 7.6 %; Mean Corpuscular HGB Conc 33.3 g/dL (31.6-35.5); Mean Corpuscular Hemoglobin 29.8 pg (28.0-33.3); Mean Corpuscular Volume 89.5 fL (83.0-100.0); Mean Platelet Volume 9.3 fL (9.4-12.4); Monocytes # 0.4 K/mcL (0.0-1.3); Monocytes % 3.9 %; Neutrophils # 8.7 K/mcL (1.6-8.9); Platelet Count 298 K/mcL (140-400); Red Blood Count 4.19 M/mcL (3.82-4.97); Red Cell Distribution Width 13.2 % (11.5-14.5); Segmented Neutrophils % 87.6 %
[2018-06-18] MEDS: traMADol 50 MG TABLET PO PRN (05:47)
[2018-06-18 05:51] LABS: Hemoglobin 12.5 g/dL (11.5-15.4)
[2018-06-18 06:06] LABS: BUN/Creatinine Ratio 14 (6-26); Blood Urea Nitrogen 8 mg/dL (6-20); Calcium 8.9 mg/dL (8.6-10.3); Carbon Dioxide 22 mEq/L (23-29); Chloride 108 mEq/L (98-107); Glucose 110 mg/dL (70-105); Osmolality,Calculated 283 (280-300); Potassium 3.6 mEq/L (3.5-5.1); Sodium 137 mEq/L (136-145); eGFR For Non-African Americans > 60 (> 60)
[2018-06-18] MEDS: Acyclovir 500 MG in D5% in Water 100 ML IVPB SCH (10:06)
[2018-06-18] MEDS: Acetaminophen 325 MG TABLET PO PRN (10:06)
[2018-06-18 11:58] VITALS: BP 104/72
--- NOTE | 2018-06-18 12:05 | Discharge Summary ---
- NOTES TO OUTPATIENT PROVIDER Notes to Outpatient Provider: f/u with PCP within a week. Date of Encounter: 06/18/18 Time of Encounter: 12:03 - Discharge Diagnosis (1) Nuchal rigidity Priority: Primary Status: Resolved (2) Fever Priority: Primary Status: Resolved Qualifiers: Encounter type: initial encounter Qualified Code(s): T88.3XXA - Malignant hyperthermia due to anesthesia, initial encounter (3) Headache Priority: Primary Status: Acute Qualifiers: Headache type: unspecified Headache chronicity pattern: acute headache Intractability: not intractable Qualified Code(s): R51 - Headache (4) DVT prophylaxis Priority: Primary Status: Acute Hospital course: Ms. Vick is a 28yo female presents from medicine physician's office for evaluation of meningitis suspected by the family medicine physician. Patient had a headache that started yesterday while at work. At home, she measured a temperature MAXIMUM TEMPERATURE 103. With alternating Tylenol and ibuprofen, her temperature improved to 100. She has chills, photophobia. Tightness down the middle of her spine from her neck to her sacrum. Some tingling in her bilateral fingertips. Generalized weakness. Mild nausea. At the ED, her initial temperature was 103.1, heart rate is 120. Chest x-ray and CT brain no acute changes. Lumbar puncture showed clear CSF, normal glucose and protein, RBC less than 0.003, nucleated cell less than 3. Lyme disease antibody is negative. Patient received 1 dose of IV Rocephin, IV vancomycin and acyclovir. Due to the concerning symptoms, patient was admitted for observation. Further workup including brain MRI, cervical, thoracic, and the lumbar spine MRI were all negative. Headache, fever, and a neck rigidity have resolved overnight. Neurology was consulted and recommended that patient can be discharged home. Patient will be discharged home today with follow-up with PCP within a week. Discharge discussed with: patient Time spent discussing smoking cessation with patient: more than 10 minutes - Time Spent with Patient Total time spent providing and/or coordinating discharge services: Greater than 30 minutes - Discharge Medications Home Medications: Eszopiclone [Lunesta] 1 mg PO HS 06/17/18 [History] Sertraline [Zoloft] 150 mg PO DAILY 06/17/18 [History] hydrOXYzine HCl [Hydroxyzine HCl] 12.5 - 25 mg PO HS PRN 06/17/18 [History] Acetaminophen [Tylenol] 650 mg PO Q6HR PRN tablet 06/18/18 [Rx] Allergies/Adverse Reactions: 3 Allergy/AdvReac Type Severity Reaction Status Date / Time No Known Allergies Allergy Verified 10/25/17 18:01 Date of admission: 06/17/18 16:51 Primary care physician: Christina Jackson CNP Consults: 06/18/18 09:51 Consult to Neurology [CONS] Routine Consulting Provider: Neurology [facility] Reason for Consult: headache Call Completed: Yes Anticipated date of discharge: 06/18/18 - Constitutional Vitals: Temp Pulse Resp BP Pulse Ox 98.2 F 61 16 104/72 95 06/18/18 11:53 06/18/18 11:53 06/18/18 11:53 06/18/18 11:53 06/18/18 11:53 General appearance: Present: cooperative, A&O X 3, answers questions appropriately Exam: PHYSICAL EXAMINATION: GENERAL APPEARANCE: The patient is alert, oriented and in no acute distress. HEENT: Head is normocephalic. The sinuses are nontender. Pupils are equal and reactive. The nares are patent. Oropharynx clear without lesions. NECK: Supple without lymphadenopathy. HEART: Regular rate and rhythm. LUNGS: No crackles or wheezes are heard. ABDOMEN: Soft, nontender, nondistended with good bowel sounds heard. Inguinal area is normal. EXTREMITIES: Without cyanosis, clubbing or edema. NEUROLOGICAL: no focal neuro deficit SKIN: Warm and dry without any rash. - Patient Status Disposition: Home, Self-Care Condition: Fair Functional capacity at discharge: independent ambulation Overall status at discharge: patient is progressing back to baseline - Discharge Instructions Follow Up With: Christina Jackson CNP [Primary Care Provider] - (Unable to schedule follow up appointment due to office being closed. Please call wednesday to schedule appointment. ) - Diet and Activity Activity: increase activity as tolerated Diet: advance to your usual diet
--- NOTE | 2018-06-18 12:09 | Neurology - Consult Note ---
Date of Encounter: 06/18/18 Time of Encounter: 12:06 Assessment and Plan (1) Nuchal rigidity Current Visit: Yes Status: Resolved This young woman with no significant PMH who developed acute onset of headache, neck pain fever rapidly improved. MRI of brain and spinal cord showed no abnormality. CSF study showed normal cell count, normal protein and glucose level therefore the patient likely developed headaches and neck pain related to feverish disorder likely viral in nature. No evidence of primary [employer] involvement. Now, she has nonfocal neurological examination and is asymptomatic and from neurology perspective, will not recommend further investigation. Patient is ready to be discharged home. History of Present Illness Chief complaint: Headache and fever HPI: Ms. Vick is a 28 year old female with PMH significant for anxiety, obesity who presented to ER for evaluation of fever and headache and neck pain. Patient was sent from family physician's office with complaint of new onset of headache, and reported complaint of fever. Patient has no prior history of headaches or neck pain. In the ER, CT of head was negative. Due to fever and head and neck pain LP was performed and showed normal CSF EBC, protein and glucose levels. In the ER her temperature was found to be normal. She has no leucocytosis. No mental status changes. No recent history of tick bite. However, she was found to have significant nuchel rigidity and back pain which are new to her. Therefore neurology was consulted for further evaluation. I did recommend MRI of brain and T spine, Lumbar spine which are all completed at the time of this interview. She is back to normal although she still has some soreness to the neck region. No longer having nuchal rigidity. She remained afebrile overnight. Past Med Surg Social Fam HX - Past Medical History Medical history: kidney stones Psychiatric history: anxiety, depression - Past Surgical History Surgical History: appendectomy, , other Additional surgical history: 3 surgerys left leg - Social History Smoking Status: Never smoker Smokeless Tobacco Status: No Alcohol use: none Drug use: none Medications and Allergies Eszopiclone [Lunesta] 1 mg PO HS 06/17/18 [History] Sertraline [Zoloft] 150 mg PO DAILY 06/17/18 [History] hydrOXYzine HCl [Hydroxyzine HCl] 12.5 - 25 mg PO HS PRN 06/17/18 [History] Acetaminophen [Tylenol] 650 mg PO Q6HR PRN tablet 06/18/18 [Rx] 3 Allergy/AdvReac Type Severity Reaction Status Date / Time No Known Allergies Allergy Verified 10/25/17 18:01 All Systems: The remainder of the systems were reviewed and are negative Physical Examination - Vital Signs Vital Signs: Initial Vital Signs Temp Pulse Resp BP Pulse Ox 103.2 F H 128 16 127/94 98 06/17/18 11:11 06/17/18 11:11 06/17/18 11:11 06/17/18 11:11 06/17/18 11:11 - Constitutional General appearance: comfortable - Neurologic Detailed motor examination: full strength in all major muscle groups Motor examination - right side: 5/5: deltoids, biceps, triceps, wrist flexion, wrist extension, odd bundle worker, hip flexors, tibialis Anterior, quadriceps, toe extension (EHL), plantarflexion Motor examination - left side: 55: deltoids, biceps, triceps, wrist flexion, wrist extension, hip flexors, odd bundle worker, quadriceps, tibialis Anterior, toe extension (EHL), plantarflexion Detailed sensory examination: intact Reflex and gait examination: other Reflexes: Biceps: 2+, Triceps: 2+, Brachioradialis: 2+, Patella: 2+, Achilles: 2 + Mental Status Examination: awake, alert, oriented to person, oriented to place, oriented to time, follows commands appropriately, answers questions appropriately, no agnosia, no aphasia, no aproxia Cranial nerve examination: PERRL, EOMI, visual diana intact, corneal reflexes brisk symmetrically, sensory to face intact, mastication intact, no facial asymmetry is present, no dysarthria, hearing is intact symmetrically, soft palate elevates bilaterally upon phonation, gag reflex intact, flexes SCM and trapezius muscles symmetrically with full power, tongue protrudes midline, no atrophy or facial fasiculations present Cerebellar examination: no dysmetria, performs finger to nose and heel to [place] symmetrically without ataxia, no gait ataxia, no truncal ataxia, no difficulty with rapid alternating movements Results - Laboratory Findings CBC and BMP: 06/18/18 04:36 06/18/18 04:36 Abnormal lab findings: Abnormal lab results MPV 9.3 fL (9.4-12.4) L 06/18/18 04:36 Chloride 108 mEq/L (98-107) H 06/18/18 04:36 Carbon Dioxide 22 mEq/L (23-29) L 06/18/18 04:36 Creatinine 0.56 mg/dL (0.60-1.20) L 06/18/18 04:36 Glucose 110 mg/dL (70-105) H 06/18/18 04:36 Urine Ketones 15 mg/dL (Negative) H 06/17/18 21:41 Urine Blood Moderate (Negative) H 06/17/18 21:41 Ur Squamous Epith Cells Many per lpf (None-Few) H 06/17/18 21:41 Consult Discharge Plan - Plan Referrals: Christina Jackson, TRAILER DRIVER [Primary Care Provider] - (Unable to schedule follow up appointment due to office being closed. Please call wednesday to schedule appointment. )
[2018-06-20 16:37] LABS: Enterococcus by PCR Not Detected (Not Detect); blaKPC Carbapenem-Resist Gene Not Detected (Not Detect); mecA Methicillin-Resist Gene Not Detected (Not Detect); vanA/B Vancomycin-Resist Genes Not Detected (Not Detect)
[2018-06-20 16:38] LABS: Acinetobacter baumannii by PCR Not Detected (Not Detect); Candida albicans by PCR Not Detected (Not Detect); Candida glabrata by PCR Not Detected (Not Detect); Candida krusei by PCR Not Detected (Not Detect); Candida parapsilosis by PCR Not Detected (Not Detect); Candida tropicalis by PCR Not Detected (Not Detect); Enterobacter cloacae Cmplx PCR Not Detected (Not Detect); Enterobacteriaceae by PCR Not Detected (Not Detect); Escherichia coli by PCR Not Detected (Not Detect); Klebsiella oxytoca by PCR Not Detected (Not Detect); Klebsiella pneumoniae by PCR Not Detected (Not Detect); Proteus by PCR Not Detected (Not Detect); Pseudomonas aeruginosa by PCR Not Detected (Not Detect); Serratia marcescens by PCR Not Detected (Not Detect); Staphylococcus aureus by PCR Not Detected (Not Detect); Staphylococcus by PCR DETECTED (Not Detect); Streptococcus agalactiae(B)PCR Not Detected (Not Detect); Streptococcus by PCR Not Detected (Not Detect); Streptococcus pneumoniae PCR Not Detected (Not Detect); Streptococcus pyogenes (A) PCR Not Detected (Not Detect)
--- NOTE | 2018-06-20 22:32 | Event Note ---
Date of Encounter: 06/20/18 Time of Encounter: 18:00 Notified of blood culture with Staphylococcus. Patient covered by Vancomycin while in hospital. Symptoms resolved so discharged without antibiotic. Patient instructed to follow up with PCP within one week of discharge. Informed discharging provider Lucretia Rodgers of positive blood culture and he advised he would contact PCP.
[2018-06-23 09:44] LABS: HSV 1 Glycoprotein G IgG CSF 0.3 IV (<=0.89); HSV 2 Glycoprotein G IgG CSF 0.04 IV (<=0.89)
== END 2018-06-18 13:20 | disposition home or self-care (01) ==
LOC: EMEROOARM 10:53 → 3BNU 10:53
PROVIDERS: ADMIT Internal Medicine; ATTEND Internal Medicine